=== PATIENT | male | born 1930 ===

== ENCOUNTER 2016-12-31 14:29 | Emergency (ER) | payer MEDICARE ==
[2016-12-31] MEDS ORDERED: Tetanus/Diphtheria Toxoids 0.5 ml Syringe IM ONE ×2 (16:09→16:18)
--- NOTE | 2016-12-31 16:23 | C.PDOC ---
History Of Present Illness Kushal Macedo is a 86 year old male, with a past medical history of asthma, who presents to the emergency department complaining of nail injury to the right foot onset for 6 hrs. Patient reports that when he stepped on the nail, it went through the sneaker. Patient isn't up to date with tetanus immunization. He denies any other injuries. PMD: Josephine Hansen Chief Complaint (Nursing): Lower Extremity Problem/Injury History Per: Patient History/Exam Limitations: no limitations Onset/Duration Of Symptoms: Hrs (6) Current Symptoms Are (Timing): Still Present Severity: Mild - Ankle/Foot Description Of Injury: Other (stepped on nail) Past Medical History Reviewed: Historical Data, Nursing Documentation, Vital Signs Vital Signs: Last Vital Signs Temp 97.9 F 12/31/16 16:35 Pulse 88 12/31/16 16:35 Resp 18 12/31/16 16:35 BP 122/76 12/31/16 16:35 Pulse Ox 100 12/31/16 18:58 - Medical History PMH: Asthma Family History: States: Unknown Family Hx - Social History Hx Tobacco Use: No Hx Alcohol Use: No Hx Substance Use: No - Immunization History Hx Tetanus Toxoid Vaccination: No Hx Influenza Vaccination: No Hx Pneumococcal Vaccination: No Review Of Systems Except As Marked, All Systems Reviewed And Found Negative. Constitutional: Negative for: Fever, Chills Gastrointestinal: Negative for: Nausea, Vomiting, Abdominal Pain Musculoskeletal: Positive for: Foot Pain (nail injury to right) Physical Exam - Physical Exam Appears: Well, Non-toxic, No Acute Distress Skin: Normal Color, Warm, Dry Head: Atraumatic, Normacephalic Eye(s): bilateral: Normal Inspection Ear(s): Bilateral: Normal Nose: Normal Throat: Normal Neck: Normal, Normal ROM Cardiovascular: Rhythm Regular, No Murmur Respiratory: Normal Breath Sounds Extremity: Normal ROM, No Pedal Edema, No Swelling, Other (right foot has small puncture wound on the buttom of the foot, no active bleeding, no erythema, no swelling.) Neurological/Psych: Oriented x3, Normal Speech, Normal Cognition ED Course And Treatment O2 Sat by Pulse Oximetry: 100 (RA) Pulse Ox Interpretation: Normal Medical Decision Making Medical Decision Making: Initial Plan: --Cipro 500 mg PO --Tenivac 0.5 ml IM Scribe Attestation The documentation for this encounter was entered by Daniel Coleman acting as a scribe for [place] GUTIERREZ All medical record entries made by the Scribe were at my direction and personally dictated by me. I have reviewed the chart and agree that the record accurately reflects my personal performance of the history, physical exam, medical decision making, and the department course for this patient. I have also personally directed, reviewed, and agree with the discharge instructions and disposition. Disposition - Disposition Referrals: Josephine Hansen [Staff Provider] - Disposition: HOME/ ROUTINE Disposition Time: 16:20 Condition: STABLE Additional Instructions: Follow up with your PMD within 1-2 days. Return to Ed if feel worse. Prescriptions: Ciprofloxacin [Cipro] 1 tab PO BID #10 tab Instructions: Puncture Wound (ED) Forms: [employer] ([place]ish) - Clinical Impression Clinical Impression: Puncture wound of plantar aspect of foot
[2016-12-31 16:52] VITALS: BP 122/76; PULSE 88; RESP 18; TEMP 97.9
[2016-12-31 18:54] VITALS: O2SAT 100
== END 2016-12-31 16:50 | disposition home or self-care (01) ==
LOC: C.ER 14:29
DX: S91.331A Puncture wound without foreign body, right foot, initial encounter (principal); W45.0XXA Nail entering through skin, initial encounter; Y93.89 Activity, other specified; Y92.89 Other specified places as the place of occurrence of the external cause; Z23 Encounter for immunization